=== PATIENT | female | born 1960 | race Caucasian/White ===

== ENCOUNTER → 2017-11-14 | Outpatient (CLI) | payer BC ==
--- NOTE | 2017-11-20 21:21 | SLEEPCENT ---
DATE OF PROCEDURE: 11/14/2017 ORDERING PROVIDER: Dr. Quintero Nocturnal polysomnography was performed for retitration of pressure therapy in this patient with obstructive sleep apnea syndrome. For testing, a [employer] Simplus full face mask of small size was used. An initial pressure of 5 cm of water pressure was applied to the circuit and the lights were extinguished. 7 hours and 14 minutes of data were reviewed. There were 350 minutes of sleep identified. Sleep latency was normal at 166.5 minutes. Rapid eye movement (REM) latency was normal at 77 minutes. Sleep architecture was fair with one period of wake around 1 am. There were three REM cycles. Overall sleep efficiency was good at 82.3%. Patient's EKG showed a sinus rhythm with an average heart rate of 66 beats per minute. Mild heart rate variability was seen, 60-80 beats per minute. EEG showed significant coarsening in background. No focal events were identified and there were normal wave forms for wake and sleep. Persistence of respiratory events prompted an increased in CPAP pressure and despite optimal mask fit and minimal air leak, the patient was changed to a bilevel device at an inspiratory pressure of 14, expiratory pressure of 10, respiratory events were fully palliated. There was some limb activity but arousals from limb events were few. IMPRESSION: Obstructive sleep apnea syndrome (G47.33). RECOMMENDATIONS: Nightly use of bilevel pressure therapy, inspiratory 14 over expiratory pressure of 10.
== END ==
LOC: M SLEEP 20:08
PROVIDERS: ATTEND Physician Assistant
DX: G47.33 Obstructive sleep apnea (adult) (pediatric) (principal)

== ENCOUNTER → 2018-07-07 | Outpatient (CLI) | payer BC | LOC: M RAD 13:17 | DX: I87.393 Chronic venous hypertension (idiopathic) with other complications of bilateral lower extremity (principal) | CPT/HCPCS: 93970 ==

== ENCOUNTER → 2019-10-14 | Outpatient (CLI) | payer BC ==
--- NOTE | 2019-10-19 11:42 | SLEEPCENT ---
DATE OF PROCEDURE: 10/14/2019 ORDERING PROVIDER: Ant Verdin PA-C, copy to CHELLE Solorio. INTERPRETATION: Nocturnal polysomnography was performed for re-titration of pressure therapy in this patient with obstructive sleep apnea syndrome. For testing a [employer] Eson 2 nasal mask of medium size was used and initial pressure of 14/10 was applied to a bilevel pressure device and the lights were extinguished. 2 hours and 40 minutes of data were reviewed. There were 107 minutes of sleep identified. Sleep latency was normal at 15 minutes. Rapid eye movement (REM) latency was normal at 110 minutes. Sleep architecture was difficult to paddock judge. Overall sleep efficiency was 72.3%. The patient's electrocardiogram showed sinus rhythm with an average heart rate of 70 beats per minute. EEG showed normal waveforms for awake and sleep. Respiratory events were fully palliated with BiPAP of pressure of 14 over 10. The patient spontaneously awoke at 0230 and elected to stop testing at that point. The patient did note some mask leak. The patient was not interested in attempting other mask devices. IMPRESSION: Obstructive sleep apnea syndrome (G47.33) RECOMMENDATIONS: Nightly use of bilevel pressure therapy inspiratory of 14 over expiratory of 10.
== END ==
LOC: M SLEEP 19:47
PROVIDERS: ATTEND Internal Medicine Pulmonary Disease
DX: G47.33 Obstructive sleep apnea (adult) (pediatric) (principal)

== ENCOUNTER → 2020-08-01 | Outpatient (REF) | payer BC ==
[2020-08-01 17:38] LABS: APPEARANCE, URINE TURBID (CLEAR); BACTERIA, URINE AUTO NEGATIVE (NEGATIVE); BILIRUBIN, URINE AUTO NEGATIVE (NEGATIVE); BLOOD, URINE BLOOD NEGATIVE (NEGATIVE); CALCIUM OXALATE CRYSTALS LARGE; COLOR, URINE AMBER (YELLOW); GLUCOSE, URINE (UA) AUTO NEGATIVE (NEGATIVE); KETONE, URINE AUTO TRACE mg/dL (NEGATIVE); LEUKOCYTE ESTERASE, URINE AUTO NEGATIVE (NEGATIVE); NITRITE, URINE AUTO NEGATIVE (NEGATIVE); PROTEIN, URINE AUTO NEGATIVE (NEGATIVE); RBC, URINE AUTO 1 /HPF (0-3); SPECIFIC GRAVITY URINE AUTO 1.027 (1.002-1.035); SQUAMOUS EPITHELIAL CELL UR AU 1 /HPF (0-6); UROBILINOGEN, URINE AUTO 0.2 mg/dL (0.0-2.0); WBC, URINE AUTO 1 /HPF (0-3)
== END ==
LOC: M SMT 15:19
PROVIDERS: ATTEND Nurse Practitioner Women's Health
DX: R35.0 Frequency of micturition (principal); R39.15 Urgency of urination; N39.498 Other specified urinary incontinence